=== PATIENT | male | born 1955 | race Caucasian/White ===

== ENCOUNTER 2021-03-26 06:52 | Day surgery (SDC) | payer OTHER ==
--- NOTE | 2021-03-26 06:29 | PCM.PREANE ---
Preanesthetic Assessment - Procedure Proposed Procedure: Colonoscopy - Anesthesia/Transfusion/Family Hx Anesthesia History: Prior Anesthesia Reaction Type of Anesthesia Reaction: Excessive Nausea/Vomiting Family History of Anesthesia Reaction: No Transfusion History: No Prior Transfusion(s) Intubation History: Unknown - Review of Systems General: No Symptoms Pulmonary: No Symptoms Cardiovascular: No Symptoms Gastrointestinal: Diarrhea (From prep) Neurological: No Symptoms, Numbness, Tingling (Numbness/tingling in tips of fingers) Other: Reports: None - Physical Assessment NPO Status Date: 03/25/21 NPO Status Time: 22:00 Vital Signs: BP: 154/87 HR 70 RR 16 98% 97.8 Height: 1.78 m Weight: 115 kg ASA Class: 2 Mental Status: Alert & Oriented x3 Airway Class: Mallampati = 2 Dentition: Reports: Normal Dentition, [place]), [place] Thyro-Mental Finger Breadths: 3 Mouth Opening Finger Breadths: 3 ROM/Head Extension: Full Lungs: Clear to Auscultation, Normal Respiratory Effort Cardiovascular: Regular Rate, Regular Rhythm - Allergies Allergies/Adverse Reactions: Allergies Allergy/AdvReac Type Severity Reaction Status Date / Time shellfish derived Allergy Throat Verified 03/25/21 12:07 Swelling - Blood Blood Available: No Product(s) Available: None - Anesthesia Plan Pre-Op Medication Ordered: None - Acknowledgements Anesthesia Type Planned: MAC Pt an Appropriate Candidate for the Planned Anesthesia: Yes Alternatives and Risks of Anesthesia Discussed w Pt/Guardian: Yes Pt/Guardian Understands and Agrees with Anesthesia Plan: Yes PreAnesthesia Questionnaire Gastrointestinal History: Reports: GERD Musculoskeletal History: Reports: Arthritis Dermatologic History: Reports: Eczema - Past Surgical History HEENT Surgical History: Reports: Tonsillectomy GI Surgical History: Reports: Appendectomy, Colonoscopy, Other (See Below) Other GI Surgeries/Procedures: Laparoscopic Umbilical Hernia Repair Musculoskeletal Surgical History: Reports: Arthroscopic Knee, Carpal Tunnel, Knee Replacement - SUBSTANCE USE Tobacco Use Status *Q: Never Tobacco User Tobacco Use Within Last Twelve Months: No Second Hand Smoke Exposure: No Days Per Week of Alcohol Use: 7 Number of Drinks Per Day: 1 Total Drinks Per Week: 7 Date of Last Drink: 03/23/21 Time of Last Drink: 12:00 Recreational Drug Use History: No - HOME MEDS Home Medications: Home Meds Aspirin 81 mg PO DAILY 03/25/21 [History] Omeprazole Magnesium [Prilosec Otc] 20 mg PO DAILY 03/25/21 [History] - CURRENT (IN HOUSE) MEDS Current Meds: Current Medications Discontinued Medications Sodium Chloride (Sodium Chloride 0.9% 10 Ml Syringe) 10 ml FLUSH ASDIRECTED PRN PRN Reason: Keep Vein Open Stop: 03/25/21 18:00
[~2021-03-26 06:52] MED LIST: Lidocaine 1% 4 ML ONE; Midazolam 1 MG/ML 2 ML SDV ONE; Propofol 200 MG/20 ML SDV ONE; Sodium Chloride 0.9% 10 ML Syringe FLUSH PRN
[2021-03-26] MEDS ORDERED: Sodium Chloride 0.9% 10 ML Syringe FLUSH PRN (07:40)
[2021-03-26] MEDS ORDERED: Lidocaine 1%/Sod Bicarbonate in NS 8.4% 1 ML Syringe IDERM PRN (07:40)
[2021-03-26] MEDS ORDERED: Lactated Ringers 1,000 ML IV SCH (07:45)
--- NOTE | 2021-03-26 08:09 | PCM.OPNOTE ---
- General Post-Op/Procedure Note Date of Surgery/Procedure: 03/26/21 Operative Procedure(s): Colonoscopy Findings: Normal colonoscopy Pre Op Diagnosis: Colon cancer screening Post-Op Diagnosis: Diverticulosis Anesthesia Technique: MAC Primary Surgeon: Terrence Moran Anesthesia Provider: Coty Thomas EBL in mLs: 0 Complications: None Condition: Good Free Text/Narrative:: After the patient gave verbal and written consent he was placed on blood pressure and pulse ox monitoring. He was given IV sedation which he tolerated well. The Olympus colonoscope was inserted per rectum and advanced to the cecum without difficulty. The ileocecal valve and appendiceal orifice were imaged documenting cecal intubation. This colonoscope was slowly withdrawn. The prep was excellent. The views were excellent. Scattered diverticulosis was noted throughout the colon. The colonoscope was then retroflexed in the rectum and the details are above. There were no complications and the patient left the procedure room in good condition. His next colonoscopy is due in 10 years for colon cancer screening.
--- NOTE | 2021-03-26 08:12 | PCM48HPAN ---
Post Anesthesia Note - EVALUATION WITHIN 48HRS OF ANESTHETIC Vital Signs in Normal Range: Yes Patient Participated in Evaluation: Yes Respiratory Function Stable: Yes Airway Patent: Yes Cardiovascular Function Stable: Yes Hydration Status Stable: Yes Pain Control Satisfactory: Yes Nausea and Vomiting Control Satisfactory: Yes Mental Status Recovered: Yes Vital Signs: Last Vital Signs Temp 97.8 F 03/26/21 07:21 Pulse 70 03/26/21 07:21 Resp 16 03/26/21 07:21 BP 154/87 H 03/26/21 07:21 Pulse Ox 98 03/26/21 07:21 0804 vital signs: 115/72 HR 61 RR 18 97.7 96 RA
== END 2021-03-26 09:15 | disposition home or self-care (01) ==
LOC: JD.SDS 06:52
PROVIDERS: ATTEND Family Medicine
DX: Z12.11 Encounter for screening for malignant neoplasm of colon (principal); K57.30 Diverticulosis of large intestine without perforation or abscess without bleeding; K21.9 Gastro-esophageal reflux disease without esophagitis; Z79.82 Long term (current) use of aspirin; Z79.899 Other long term (current) drug therapy; Z91.013 Allergy to seafood; Z90.49 Acquired absence of other specified parts of digestive tract; Z98.890 Other specified postprocedural states
CPT/HCPCS: 45378; J2250; J2704; J7120; 00812